=== PATIENT | male | born 1970 | race Caucasian/White ===

== ENCOUNTER 2024-06-27 06:08 | Day surgery (SDC) | payer OTHER, SELFPAY ==
[2024-05-22 11:53] VITALS: BMI 27.0
[2024-06-10 10:40] VITALS: BMI 27.3
[2024-06-27 06:30] VITALS: BP 133/90; PULSE 109; RESP 20; TEMP 37.1; O2SAT 98
--- NOTE | 2024-06-27 06:50 | P.PNAN_ITS ---
Anes - Initial Pre Proc Eval Procedure: Operation Date: 06/27/24 08:00 Proposed Procedures p Diagnostic Colonoscopy - Enrique Oakley MD Date/Time: 06/27/24 06:50 Surgeon: Enrique Oakley MD Pre Op Diagnosis: History of Colon Polyps Patient Data Age: 54 Gender: M Height: 1.78 m Weight: 84.2 kg Allergies Allergy/AdvReac Type Severity Reaction Status Date / Time Penicillins Allergy Unknown RASH- A Verified 06/27/24 07:04 CHILD Home Medications Medication Instructions Recorded Confirmed Type metoprolol succinate 25 mg 25 mg PO DAILY 06/11/24 06/27/24 History tablet,extended release 24 hr rosuvastatin 40 mg tablet 40 mg PO DAILY 06/11/24 06/27/24 History Patient hx anesthesia problems: none Family hx anesthesia problems: none Results Review: All pre-operative results and documents have been reviewed as part of the pre- operative evaluation. [facility] Past Medical History Medical History (Updated 06/27/24 @ 07:20 by Enrique Oakley MD) Hyperlipidemia Hypertension Neurofibromatosis Social History Social History Smoking status: Never smoker Substance use type: does not use Living arrangements: with family Spiritual care concerns: No Anes - Eval Final PreProcedure Day of Procedure 06/27/24 06:50 Patient weight: overweight Heart: regular rate and rhythm Lungs: clear to auscultation Airway: Mallampati scale class II Neurological: alert and oriented Last oral intake: >/= 8 hours ASA classification: III Emergent: no Anesthetic plan: proceed Anesthesia type and monitoring: general GIVS and standard monitoring Results Review: All pre-operative results and documents have been reviewed as part of the pre- operative evaluation. Informed Consent: The patient's anesthetic plan and its attendant risks and benefits were discussed with the patient/family/POA. Questions were solicited and answers provided to the satisfaction of the patient/family/POA.
[2024-06-27] MEDS: LACTATED RINGERS 1,000 ML 150 ML IV CONT (06:54)
--- NOTE | 2024-06-27 07:19 | PM.HPGS ---
History of Present Illness History of Present Illness Consent: Risks, benefits, and alternatives have been discussed and questions answered. Patient agrees to proceed with procedure. Chief complaint: History of Colon Polyps Narrative: Juanito Dumont is a 54 year old male presents for screening colonoscopy. Patient has a history of colon polyps at the time of last colonoscopy in 2019. Patient reports his current bowel habits are normal. Patient denies any abdominal pain he family history is noncontributory. Patient's past medical history is significant for neurofibromatosis. Review of Systems Review of Systems: All systems reviewed & are unremarkable except as noted in HPI and below [facility] Past Medical History Medical History (Updated 06/27/24 @ 07:20 by Enrique Oakley MD) Hyperlipidemia Hypertension Neurofibromatosis Social History Social History Smoking status: Never smoker Substance use type: does not use Living arrangements: with family Spiritual care concerns: No Meds Home Medications and Allergies Home Medications Medication Instructions Recorded Confirmed Type metoprolol succinate 25 mg 25 mg PO DAILY 06/11/24 06/27/24 History tablet,extended release 24 hr rosuvastatin 40 mg tablet 40 mg PO DAILY 06/11/24 06/27/24 History Allergies Allergy/AdvReac Type Severity Reaction Status Date / Time Penicillins Allergy Unknown RASH- A Verified 06/27/24 07:04 CHILD Vital Signs Vital Signs - 24 hr 06/27/24 06:30 Temperature 98.8 F Pulse Rate 109 H Respiratory Rate 20 Blood Pressure 133/90 Pulse Oximetry 98 Oxygen Delivery Room Air Exam Narrative: Physical exam reveals patient to be alert. Vital signs stable. HEENT exam is unremarkable. Patient is anicteric. Lungs are clear to auscultation and percussion without murmur or extra sounds. Abdomen bowel sounds are present soft nontender with no organomegaly. Digital and External rectal exam normal. Assessment and Plan Assessment and plan (1) History of colon polyps: Code(s): Z86.0100 - Personal history of colon polyps, unspecified Status: Acute Assessment and Plan: Patient was found to have adenomatous colon polyps at the time of previous colonoscopy 2019. Plan for surveillance colonoscopy now and consider this at 5 year intervals.
[2024-06-27 08:22] VITALS: BP 103/78; PULSE 91; RESP 16; O2SAT 96
[2024-06-27 08:32] VITALS: BP 103/64; PULSE 92; RESP 18; O2SAT 100
[2024-06-27 08:42] VITALS: BP 119/71; PULSE 92; RESP 18; O2SAT 97
--- NOTE | 2024-06-27 12:43 | WPDANESPN ---
Anes - Prog Note Post-Op Date/Time: 06/27/24 12:43 Cardiovascular status: normal Respiratory status: normal Airway patency: baseline Mental status: baseline Post-Op hydration status: normal Vital Signs: Last Vital Signs Temp 37.1 C 06/27/24 06:30 Pulse 92 06/27/24 08:42 Resp 18 06/27/24 08:42 BP 119/71 06/27/24 08:42 Pulse Ox 97 06/27/24 08:42 O2 Del Method Room Air 06/27/24 06:30 Pain Score (VAS): 0 I/O: Intake & Output 06/26/24 06/27/24 06/27/24 23:59 07:59 15:59 Intake Total 700 Balance 700 Post-procedural complaints: none Patient Feedback: Patient satisfied with anesthetic care. Other Findings: Patient vital signs back to baseline. Patient denies nausea and vomiting. Patient's pain under control. Patient OK for discharge.
== END 2024-06-27 08:51 | disposition home or self-care (01) ==
PROVIDERS: PCP Physician Assistant; Visit Provider Internal Medicine Gastroenterology
PROC: 0DJD8ZZ Inspection of Lower Intestinal Tract, Via Natural or Artificial Opening Endoscopic (ICD-10-PCS; CPT 45378; principal; 2024-06-27 08:00)
DX: Z86.0100 Personal history of colon polyps, unspecified (principal); D12.5 Benign neoplasm of sigmoid colon; K64.8 Other hemorrhoids
CPT/HCPCS: 45385

== ENCOUNTER 2024-06-27 07:00 | Outpatient (NON) | payer OTHER, SELFPAY | END 2024-06-27 07:01 | disposition home or self-care (01) | LOC: ANHLAB 06-28 10:44 | PROVIDERS: PCP Physician Assistant; Visit Provider Internal Medicine Gastroenterology | DX: D12.5 Benign neoplasm of sigmoid colon (principal) | CPT/HCPCS: 88305 ==